=== PATIENT | male | born 1960 | race Caucasian/White ===

== ENCOUNTER 2017-12-05 03:38 | Outpatient (CLI) | payer MEDICARE, MEDICAID | END 2017-12-05 23:59 | disposition home or self-care (01) | LOC: DIABETIC 03:38 | PROVIDERS: ATTEND Surgery | DX: E66.01 Morbid (severe) obesity due to excess calories (principal); E11.9 Type 2 diabetes mellitus without complications; I10 Essential (primary) hypertension; G47.30 Sleep apnea, unspecified | CPT/HCPCS: 97802 ==

== ENCOUNTER 2018-01-02 02:25 | Outpatient (CLI) | payer MEDICARE, MEDICAID | END 2018-01-02 23:59 | disposition home or self-care (01) | LOC: DIABETIC 02:25 | PROVIDERS: ATTEND Surgery | DX: E66.01 Morbid (severe) obesity due to excess calories (principal); I10 Essential (primary) hypertension; E11.9 Type 2 diabetes mellitus without complications; G47.30 Sleep apnea, unspecified | CPT/HCPCS: 97802 ==

== ENCOUNTER 2018-01-28 04:27 | Outpatient (CLI) | payer MEDICARE, MEDICAID | END 2018-01-28 23:59 | disposition home or self-care (01) | LOC: DIABETIC 04:27 | PROVIDERS: ATTEND Surgery | DX: E66.01 Morbid (severe) obesity due to excess calories (principal); E11.9 Type 2 diabetes mellitus without complications; I10 Essential (primary) hypertension; G47.30 Sleep apnea, unspecified | CPT/HCPCS: 97802 ==

== ENCOUNTER 2018-02-25 03:09 | Outpatient (CLI) | payer MEDICARE, MEDICAID | END 2018-02-25 23:59 | disposition home or self-care (01) | LOC: DIABETIC 03:09 | PROVIDERS: ATTEND Surgery | DX: E66.01 Morbid (severe) obesity due to excess calories (principal); E11.9 Type 2 diabetes mellitus without complications | CPT/HCPCS: 97802 ==

== ENCOUNTER 2022-06-15 06:50 | Day surgery (SDC) | payer MEDICARE, MEDICAID ==
[2022-06-08 08:41] LABS: BASOPHILS # (AUTO) 0.1 X10'3 (0-0.2); BASOPHILS % (AUTO) 0.8 % (0-1); EOSINOPHILS # (AUTO) 0.5 X10'3 (0-0.9); EOSINOPHILS % (AUTO) 2.7 % (0-6); LYMPHOCYTES # (AUTO) 3.2 X10'3 (1.1-4.8); MEAN CORPUSCULAR HEMOGLOBIN 27.3 PG (27.0-31.0); MEAN CORPUSCULAR HGB CONC 32.8 g/dL (33.0-36.5); MEAN CORPUSCULAR VOLUME 83.1 FL (78-98); MEAN PLATELET VOLUME 7.8 FL (7.4-10.4); MONOCYTES # (AUTO) 0.7 X10'3 (0-0.9); MONOCYTES % (AUTO) 3.8 % (2-12); NEUTROPHILS # (AUTO) 12.5 X10'3 (1.8-7.7); NEUTROPHILS % (AUTO) 73.7 % (42-75); PRE OP HEMATOCRIT 48.2 % (42.0-52.0); PRE OP HEMOGLOBIN 15.8 g/dL (14.0-17.9); PRE OP PLATELET COUNT 267 X10'3 (140-440); RED CELL DISTRIBUTION WIDTH 16.4 % (11.5-14.5)
[2022-06-08 08:52] LABS: CLARITY,URINE SLIGHTLY CLOUDY (Clear); COLOR,URINE YELLOW (Yellow); GLUCOSE, URINE >=1000 mg/dl (Neg); KETONES,URINE NEGATIVE (Neg); LEUKOCYTE ESTERASE ,URINE NEGATIVE (Neg); NITRITES, URINE NEGATIVE (Neg); OCCULT BLOOD,URINE MODERATE (Neg); PROTEIN,URINE 30 mg/dl (Neg); UROBILINOGEN,URINE 0.2 E.U/dL (0.2-1.0)
[2022-06-08 08:58] LABS: UA COLLECTION TYPE CLN CATCH MIDSTREAM
[2022-06-08 08:59] LABS: BACTERIA,URINE FEW /HPF (Neg); MUCUS STRANDS NONE SEEN /LPF (Neg); SQUAMOUS EPITHELIAL CELL,UR NONE SEEN /LPF (FEW)
[2022-06-08 09:03] LABS: ALBUMIN 3.8 G/DL (3.4-5.0); ALKALINE PHOSPHATASE 72 IU/L (46-116); BLOOD UREA NITROGEN 22 MG/DL (7-18); BUN/CREATININE RATIO 20.6 (5.4-32.0); CALCIUM 9.1 MG/DL (8.5-10.1); CHLORIDE 105 MMOL/L (99-107); CREATININE 1.07 MG/DL (0.60-1.10); PRE OP ALT 40 U/L (30-65); PRE OP ANION GAP 9 (8-16); PRE OP AST 32 U/L (10-37); PRE OP GLUCOSE 170 MG/DL (70-104); PRE OP POTASSIUM 3.8 MMOL/L (3.4-5.1); PRE OP SODIUM 140 MMOL/L (135-145); TOTAL CARBON DIOXIDE 25.8 MMOL/L (24-32); TOTAL PROTEIN 7.8 G/DL (6.4-8.2); eGFR 70 ML/MIN
[2022-06-15] VITALS (7 sets, daily range): BP systolic 120–143; BP diastolic 68–79
[~2022-06-15] VITALS: Ht 172.7 cm; Wt 154.6 kg
[~2022-06-15 06:50] MED LIST: ALLO300T8 PO; AMLO10TA13 PO; ASPI-280 PO; ATOR40TA72 PO; DOCUMENT DATE & TIME OF BETA-BLOCKER PO ONE; DULA1.5P SQ; EMPA25TA PO; FERR-119 PO; GARLIC EXTRACT; IRON1CAP39 PO; LEVO50TA8 PO; LEVO750T68 PO; LISI1TAB51 PO; METF-438 PO; METO-411 PO; OMEG1CAP46 PO; OMEP20CA16 PO; PIOG30TA72 PO; ceFAZolin inj. 3,000 MG in normal saline 100ml IV soln 100 ML IV ONE; famotidine 20mg tablet PO ONE; ringers solution, lacted 1,000 ML IV SCH
[2022-06-15] MEDS ORDERED: ondansetron/PF 4mg/2ml inj IV PRN (08:10)
[2022-06-15] MEDS ORDERED: proCHLORperazine 10 MG/2 ml inj IV PRN (08:10)
[2022-06-15] MEDS ORDERED: meperidine/PF 25mg/ml syringe IV PRN ×3 (08:10)
[2022-06-15] MEDS ORDERED: ringers solution, lacted 1,000 ML IV SCH (08:10)
[2022-06-15] MEDS ORDERED: morphine 4 MG/ML inj SYRINge IV PRN (08:10)
[2022-06-15] MEDS ORDERED: morphine 2 MG/ML inj. syringe IV PRN (08:10)
[2022-06-15] MEDS ORDERED: metoprolol succinate 25mg (24-HOUR) SR. Tablet PO STA (08:59)
[2022-06-15] MEDS ORDERED: bacitracin 15gm ointment TP ONE ×2 (09:02→10:49)
[2022-06-15] MEDS ORDERED: BUPIVAcaine/PF 5 mg/ml 10ml ONE (09:02)
[2022-06-15] MEDS ORDERED: sevoflurane 250ml liquid IH ONE (10:02)
[2022-06-15] MEDS ORDERED: LIDOcaine 2% (20mg/ml) 5ml vial ONE (10:02)
[2022-06-15] MEDS ORDERED: dexamethasone sod phosphate 10mg/ml inj ONE (10:02)
[2022-06-15] MEDS ORDERED: midazolam 1 mg/ML 2ml injection ONE (10:09)
[2022-06-15] MEDS ORDERED: propofol inj 20 ML IV ONE (10:09)
[2022-06-15] MEDS ORDERED: fentaNYL/PF 50MCG/1 ML 2ML syringe ONE (10:09)
[2022-06-15] MEDS ORDERED: BUPIVAcaine/PF 7.5mg/ml (0.75%) 10ml vial ONE (10:26)
[2022-06-15] MEDS ORDERED: ondansetron/PF 4mg/2ml inj ONE (10:35)
[2022-06-15] MEDS ORDERED: ePHEDrine 50MG/ML INJ. ONE (11:04)
--- NOTE | 2022-06-15 11:12 | NUR ---
Received from OR via NITO IN STABLE CONDITION , accompanied by Anesthesiologist and FORENSIC IDENTIFICATION SPECIALIST report given by Anesthesiolgist AND FORENSIC IDENTIFICATION SPECIALIST. ANKLE BLOCK TO LEFT FOOT. Addendum: 06/15/22 at 1141 by Alanna Ward RN Amended: Links added.
--- NOTE | 2022-06-15 12:32 | NUR ---
PATIENT DISCHARGED FROM PACU IN STABLE CONDITION AFTER WRITTEN AND VERBAL DISCHARGE INSTRUCTIONS GIVEN. PATIENT GAVE VERBAL UNDERSTANDING OF INSTRUCTIONS GIVEN. PATIENT LEFT FACILITY VIA WHEELCHAIR WITH RN. Addendum: 06/15/22 at 1305 by Alanna Ward RN Amended: Links added.
== END 2022-06-15 12:32 | disposition home or self-care (01) ==
LOC: PAS 06:50
PROVIDERS: ATTEND Podiatrist Foot & Ankle Surgery
DX: M20.42 Other hammer toe(s) (acquired), left foot (principal); M24.575 Contracture, left foot; M10.9 Gout, unspecified; E66.01 Morbid (severe) obesity due to excess calories; Z68.43 Body mass index [BMI] 50.0-59.9, adult; E11.9 Type 2 diabetes mellitus without complications; I10 Essential (primary) hypertension; K21.9 Gastro-esophageal reflux disease without esophagitis; G89.18 Other acute postprocedural pain; Z98.84 Bariatric surgery status; Z87.442 Personal history of urinary calculi; Z98.890 Other specified postprocedural states; Z88.2 Allergy status to sulfonamides; Z79.84 Long term (current) use of oral hypoglycemic drugs; Z79.899 Other long term (current) drug therapy
CPT/HCPCS: 28270; 28285; 64450; 73620; 76000; 80053; 81001; 82948; 85025; 87088; A6222; C1713; J0690; J1100; J2250; J2405; J2704; J3010; J3490; J7030; J7120; Z7506; Z7508; Z7512; A4618; A6449; A7000